=== PATIENT | female | born 1960 | race Caucasian/White ===

== ENCOUNTER 2016-04-25 19:16 | Emergency (ER) | payer OTHER ==
[~2016-04-25] VITALS: Ht 157.5 cm; Wt 67.0 kg
[~2016-04-25 19:16] MED LIST: ALBU18HF INHALATION; AZIT250T94 PO; BEN50 PO; DCL25TEC PO; PRED20TA PO; PRED50TA PO; TYLENOL
[2016-04-25 19:17] VITALS: Ht 157.5 cm; Wt 67.0 kg
[2016-04-25] MEDS ORDERED: LORA5TAB4 PO (19:35)
[2016-04-25] MEDS ORDERED: GUAI118L22 PO (19:35)
[2016-04-25] MEDS ORDERED: ALBU18HF INHALATION (19:35)
[2016-04-25] MEDS ORDERED: UDROBDM PO (19:38)
--- NOTE | 2016-04-25 23:20 | ERD ---
ER Documentation Chief Complaint Date/Time DATE: 04/25/16 TIME: 23:18 Chief Complaint cough x 5 days HPI 55 year old female comes in with a cough x 5 days. She has had rhinorrhea, cough , sore throat. No fever, chest pain or shortness of breath. ROS All systems reviewed and are negative except as per history of present illness. Medications Home Meds Active Scripts Guaifenesin-Dextromethorphan* (Robitussin* DM) 100MG/10MG/5ML Syrup, 5 ML PO Q4H Y for COUGH, #4 OZ Prov:YESY ZHANG PA-C 04/25/16 Loratadine* (Claritin*) 5 Mg Tab.rapdis, 5 MG PO DAILY, #30 TAB Prov:YESY ZHAGN PA-C 04/25/16 Albuterol Sulfate* (Ventolin HFA*) 18 Gm Hfa.aer.ad, 2 PUFF INHALATION Q4H, #1 INHALER Prov:YESY ZHANG PA-C 04/25/16 Albuterol Sulfate* (Ventolin HFA*) 18 Gm Hfa.aer.ad, 2 PUFF INHALATION Q4H, #1 INHALER Prov:FEMI MEJIA MD 05/22/15 Prednisone* (Prednisone*) 20 Mg Tab, 40 MG PO DAILY for 4 Days, TAB Prov:FEMI MEJIA MD 05/22/15 Azithromycin* (Zithromax*) 250 Mg Tablet, 250 MG PO .ZPACK DIRECTED, #6 TAB TAKE 500 MG (2 TABS) THE FIRST DAY THEN 250 MG (1 TAB) DAYS 2-5 Prov:FEMI MEJIA MD 05/22/15 Diphenhydramine Hcl* (Benadryl*) 50 Mg Cap, 50 MG PO Q6 Y for ITCHING, #30 CAP Prov:TATIANNA HAGEN NP 04/03/15 Prednisone* (Prednisone*) 50 Mg Tablet, 50 MG PO DAILY for 5 Days, TAB Prov:TATIANNA HAGEN NP 04/03/15 Reported Medications Diclofenac Sodium* (Diclofenac Sodium*) Unknown Strength Tablet.dr, PO TID, #90 TAB 04/03/15 [Tylenol] No Conflict Check 08/27/11 Allergies Allergies: Coded Allergies: ibuprofen (Verified Allergy, Mild, 2/16/16) PMhx/Soc History of Surgery: Yes (CHOLECYSTECTOMY) Anesthesia Reaction: No Hx Neurological Disorder: No Hx Respiratory Disorders: No Hx Cardiac Disorders: No Hx Psychiatric Problems: No Hx Miscellaneous Medical Probl: Yes (ARTHRITIS ) Hx Alcohol Use: No Hx Substance Use: No Hx Tobacco Use: No Physical Exam Vitals Vital Signs Date Time Temp Pulse Resp B/P Pulse Ox O2 Delivery O2 Flow Rate FiO2 04/25/16 19:17 97.2 74 20 163/79 98 Physical Exam General: Well-developed, well-nourished. The patient appears in no acute distress. HEENT: Head is normocephalic, atraumatic. No scleral icterus. Pupils are equal , round, and reactive. Oral mucous membranes are moist. No pharyngeal erythema. Neck: Supple. Nontender. Lungs: Clear to auscultation. Normal air movement. Heart: Regular rate and rhythm. S1 and S2 are normal. No murmurs, gallops, or rubs. Abdomen: Soft, nontender, nondistended. Bowel sounds are normoactive. Extremities: No clubbing or cyanosis. Normal pulses. Moving extremities x 4. No weakness. Neurologic: Alert and oriented 3. No focal deficits. Skin: Normal turgor. No rash or lesions. Procedures/MDM The patient is a 55 year old female who comes in with an acute upper respiratory infection, presumed viral. The patient has a differential diagnosis of a viral upper respiratory infection, bacterial upper respiratory infection, bronchitis, pneumonia, pharyngitis, laryngitis, epiglottitis, croup, pneumonia. Patient has a normal pulmonary examination, clear breath sounds, normal pulse oximetry, with no corrective measures needed at this time. Fluids, rest, antipyretics were encouraged. Departure Diagnosis: Primary Impression: URI (upper respiratory infection) Condition: Good Patient Instructions: Uri, Viral, No Abx (Adult) YESY ZHANG PA-C Apr 25, 2016 23:20
== END 2016-04-25 19:27 | disposition home or self-care (01) ==
LOC: E/R 19:16
DX: J06.9 Acute upper respiratory infection, unspecified (principal)
CPT/HCPCS: 99283

== ENCOUNTER 2016-12-02 22:43 | Observation (INO) | payer OTHER ==
[~2016-12-02] VITALS: Ht 157.5 cm; Wt 66.0 kg
[~2016-12-02 22:43] MED LIST changes: -DCL25TEC PO; +DICL25TA11 PO; +LORA5TAB4 PO; +UDROBDM PO
[2016-12-02 23:49] VITALS: Ht 157.5 cm; Wt 66.0 kg
[2016-12-03] MEDS ORDERED: SOD CHLORIDE 0.9% 500 ML IV STA (03:43)
[2016-12-03] MEDS ORDERED: morphine 4 MG/ML VIAL IV STA (03:43)
[2016-12-03] MEDS ORDERED: ONDANSETRON 4 MG INJ IV STA (03:43)
--- NOTE | 2016-12-03 04:32 | RADRPT ---
PROCEDURE: CT Brain without contrast. CLINICAL INDICATION: Headache TECHNIQUE: A CT of the brain was performed on a [employer] 64-slice CT scanner utilizing axial imaging from the skull base through the vertex without IV contrast. Multiplanar reformatted images were made. Images were reviewed on a PACS workstation. The CTDIvol is 60.41 mGy and the DLP is 84 5.69 mGycm. One or more of the following dose reduction techniques were used: automated exposure co ntrol, adjustment of the mA and/or kV according to patient size, or use of iterative reconstruction technique. COMPARISON: 04/17/2013 FINDINGS: There is no intracranial hemorrhage, mass effect, or midline shift. No extra-axial fluid collection is seen. The ventricles and sulci are normal in size and configuration. The density of the brain is normal, and the moreno white matter differentiation appears well-preserved. The brainstem and posteri or fossa are normal. The visualized paranasal sinuses and osseous structures are grossly unremarkabl e. IMPRESSION: 1. No evidence of acute intracranial pathology. RPTAT: HCNS Physician Pratibha Date Time Electronically viewed and signed by Physician Pratibha on 12/03/2016 04:31 /
--- NOTE | 2016-12-03 04:35 | RADRPT ---
PROCEDURE: CHEST - 1 VIEW CLINICAL INDICATION: 55-year-old female with chest pain and headaches. TECHNIQUE: A single frontal AP portable view of the chest was performed. The images were reviewed on a PACS workstation. COMPARISON: Chest x-ray November 17, 2013. FINDINGS: The cardiomediastinal silhouette has a normal appearance. There is no evidence for an infiltrate. There is no evidence for congestive heart failure. There is no evidence for pneumothorax. The osseou s structures are intact. IMPRESSION: No evidence for active cardiopulmonary disease. .Santiago Rice MD, MD Date Time Electronically viewed and signed by .Santiago Rice MD, on 12/03/2016 04:34 .Joelle/
[2016-12-03] MEDS ORDERED: HYD25 PO (05:30)
[2016-12-03] MEDS ORDERED: NAPR-688 PO (05:30)
[2016-12-03] MEDS ORDERED: OMEP20CA16 PO (05:30)
[2016-12-03 06:13] LABS: BASOPHILS % 0.4 % (0.0-2.0); EOSINOPHILS # 1.5 10^3/ul (0.0-0.5); EOSINOPHILS % 20.5 % (0.0-7.0); HEMATOCRIT 42.5 % (37.0-47.0); HEMOGLOBIN 14.1 g/dl (12.0-16.0); LYMPHOCYTES # 2.3 10^3/ul (0.8-2.9); LYMPHOCYTES % 31.4 % (15.0-51.0); MEAN CORPUSCULAR HEMOGLOBIN 28.1 pg (29.0-33.0); MEAN CORPUSCULAR HGB CONC 33.2 g/dl (32.0-37.0); MEAN CORPUSCULAR VOLUME 84.8 fl (82.0-101.0); MEAN PLATELET VOLUME 10.3 fl (7.4-10.4); MONOCYTE # 0.4 10^3/ul (0.3-0.9); MONOCYTES % 5.7 % (0.0-11.0); NEUTROPHILS % 41.7 % (39.0-77.0); PLATELET COUNT 243 10^3/UL (140-415); RED BLOOD COUNT 5.01 10^6/ul (4.20-5.40); RED CELL DISTRIBUTION WIDTH 13.2 % (11.5-14.5); WHITE BLOOD COUNT 7.4 10^3/ul (4.8-10.8)
[2016-12-03 06:34] LABS: INR 0.95; PROTIME 12.7 Sec (12.2-14.2)
[2016-12-03 06:35] LABS: PARTIAL THROMBOPLASTIN TIME 29.4 Sec (25.0-35.0)
[2016-12-03 06:56] LABS: ANION GAP 24 (8-16); BLOOD UREA NITROGEN 13 mg/dl (7-20); CALCIUM 9.9 mg/dl (8.4-10.2); CARBON DIOXIDE 27 mmol/L (21-31); CHLORIDE 99 mmol/L (97-110); GLUCOSE 107 mg/dl (70-220); POTASSIUM 3.8 mmol/L (3.5-5.1); SODIUM 146 mmol/L (135-144)
[2016-12-03] MEDS ORDERED: ASPIRIN 81 MG TAB PO ONE (07:00)
[2016-12-03 07:08] LABS: TROPONIN-I < 0.012 ng/ml (0.00-0.12)
--- NOTE | 2016-12-03 07:46 | ERA ---
ER Documentation Chief Complaint Date/Time DATE: 12/03/16 TIME: 07:45 Chief Complaint c/o dizziness, headache, left arm pain with nausea. HPI This is a 55-year-old female, Tajik-speaking, family interpreting who presents with multiple complaints. The main complaint is elevated blood pressure into the 180s and 190 systolic with associated mild, gradual onset frontal headache that is improved. The patient is also been describing chest pain over the last 1 week that is described as cramping in the center of her chest and usually worse when working out or exerting herself. She describes no chest pain currently. No fevers, chills, cough, pleuritic pain. ROS All systems reviewed and are negative except as per history of present illness. Medications Home Meds Reported Medications Omeprazole* (Omeprazole*) 20 Mg Capsule.dr, 20 MG PO DAILY, #30 CAP 12/03/16 Hydrochlorothiazide* (Hydrochlorothiazide*) 25 Mg Tab, 25 MG PO DAILY, #30 TAB 12/03/16 Naproxen* (Naproxen*) 500 Mg Tablet, 500 MG PO BID Y for PAIN LEVEL 6-10, TAB 12/03/16 Discontinued Reported Medications Diclofenac Sodium* (Diclofenac Sodium*) Unknown Strength Tablet., PO TID, #90 TAB 04/03/15 [Tylenol] No Conflict Check 08/27/11 Discontinued Scripts Guaifenesin-Dextromethorphan* (Robitussin* DM) 100MG/10MG/5ML Syrup, 5 ML PO Q4H Y for COUGH, #4 OZ Prov:YESY ZHANG PA-C 04/25/16 Loratadine* (Claritin*) 5 Mg Tab.rapdis, 5 MG PO DAILY, #30 TAB Prov:YESY ZHANG PA-C 04/25/16 Albuterol Sulfate* (Ventolin HFA*) 18 Gm Hfa.aer.ad, 2 PUFF INHALATION Q4H, #1 INHALER Prov:YESY ZHANG PA-C 04/25/16 Albuterol Sulfate* (Ventolin HFA*) 18 Gm Hfa.aer.ad, 2 PUFF INHALATION Q4H, #1 INHALER Prov:FEMI MEJIA MD 05/22/15 Prednisone* (Prednisone*) 20 Mg Tab, 40 MG PO DAILY for 4 Days, TAB Prov:FEMI MEJIA MD 05/22/15 Azithromycin* (Zithromax*) 250 Mg Tablet, 250 MG PO .ZPACK DIRECTED, #6 TAB TAKE 500 MG (2 TABS) THE FIRST DAY THEN 250 MG (1 TAB) DAYS 2-5 Prov:FEMI MEJIA MD 05/22/15 Diphenhydramine Hcl* (Benadryl*) 50 Mg Cap, 50 MG PO Q6 Y for ITCHING, #30 CAP Prov:TATIANNA HAGEN NP 04/03/15 Prednisone* (Prednisone*) 50 Mg Tablet, 50 MG PO DAILY for 5 Days, TAB Prov:TATIANNA HAGEN NP 04/03/15 Allergies Allergies: Coded Allergies: ibuprofen (Unverified Allergy, Mild, 12/03/16) PMhx/Soc History of Surgery: Yes (CHOLECYSTECTOMY) Anesthesia Reaction: No Hx Neurological Disorder: No Hx Respiratory Disorders: No Hx Cardiac Disorders: No Hx Psychiatric Problems: No Hx Miscellaneous Medical Probl: Yes (ARTHRITIS ) Hx Alcohol Use: No Hx Substance Use: No Hx Tobacco Use: No FmHx Family History: No diabetes Physical Exam Vitals Vital Signs Date Time Temp Pulse Resp B/P Pulse Ox O2 Delivery O2 Flow Rate FiO2 12/03/16 04:28 62 10 157/82 12/02/16 23:49 99.0 75 20 188/86 98 Physical Exam General: Well developed, well nourished, no acute distress Head: Normocephalic, atraumatic. Eyes: Pupils equally reactive, EOM intact ENT: Moist mucous membranes Neck: Supple, no lymphadenopathy Respiratory: Lungs clear bilaterally, no distress Cardiovascular: RRR, no murmurs, rubs, or gallops Abdominal: Soft, non-tender, non-distended, no peritoneal signs : Deferred MSK: No edema, no unilateral swelling, 5/5 strength Neurologic: Alert and oriented, moving all extremities, normal speech, no focal weakness, no cerebellar signs Skin: No rash Psych: Normal mood Result Diagram: 12/03/16 0508 12/03/16 0508 Results 24 hrs Laboratory Tests Test 12/03/16 05:08 White Blood Count 7.410^3/ul Red Blood Count 5.0110^6/ul Hemoglobin 14.1g/dl Hematocrit 42.5% Mean Corpuscular Volume 84.8fl Mean Corpuscular Hemoglobin 28.1pg Mean Corpuscular Hemoglobin Concent 33.2g/dl Red Cell Distribution Width 13.2% Platelet Count 24875^3/UL Mean Platelet Volume 10.3fl Neutrophils % 41.7% Lymphocytes % 31.4% Monocytes % 5.7% Eosinophils % 20.5% Basophils % 0.4% Nucleated Red Blood Cells % 0.0/100WBC Neutrophils # (Manual) 3.110^3/ul Lymphocytes # 2.310^3/ul Monocytes # 0.410^3/ul Eosinophils # 1.510^3/ul Basophils # 0.010^3/ul Nucleated Red Blood Cells # 0.010^3/ul Prothrombin Time 12.7Sec Prothrombin Time Ratio 1.0 INR International Normalized Ratio 0.95 Activated Partial Thromboplast Time 29.4Sec Sodium Level 146mmol/L Potassium Level 3.8mmol/L Chloride Level 99mmol/L Carbon Dioxide Level 27mmol/L Anion Gap 24 Blood Urea Nitrogen 13mg/dl Creatinine 0.70mg/dl Glucose Level 107mg/dl Calcium Level 9.9mg/dl Troponin I < 0.012ng/ml Current Medications Medications (Trade) Dose Ordered Sig/Patsy Route PRN Reason Start Time Stop Time Status Last Admin Dose Admin Sodium Chloride (NS) 500 ml @ 500 mls/hr Q1H STAT IV 12/03/16 03:43 12/03/16 04:42 DC 12/03/16 05:18 Ondansetron HCl (Zofran Inj) 4 mg ONCE STAT IV 12/03/16 03:43 12/03/16 03:46 DC 12/03/16 05:14 Morphine Sulfate (morphine) 4 mg ONCE STAT IV 12/03/16 03:43 12/03/16 03:46 DC 12/03/16 05:14 Aspirin (Aspirin) 324 mg ONCE ONCE PO 12/03/16 07:00 12/03/16 07:01 DC 12/03/16 07:27 Procedures/MDM EKG, MONITORS, & DIAGNOSTIC IMAGING: EKG: I reviewed and interpreted a 12-lead EKG. Rhythm: Normal sinus rhythm Ectopy: None Intervals: No abnormalities ST segments: No elevations or depressions T waves: No contiguous inversions Repeat EKG: EKG: I reviewed and interpreted a 12-lead EKG. Rhythm: Normal sinus rhythm Ectopy: None Intervals: No abnormalities ST segments: No elevations or depressions T waves: No contiguous inversions Chest x-ray: I reviewed and interpreted a 1 view of the chest Mediastinum: No enlargement Cardiac silhouette: No cardiomegaly Airspace: Clear lung virgen bilaterally without evidence of pneumothorax Bones: No evidence of fracture LAB INTERPRETATION: Negative troponin MEDICAL DECISION MAKING: The patient's history, physical exam and clinical presentation is concerning for possible cardiogenic etiology and acute coronary syndrome. Based on the patient's clinical exam and history and risk factors, I have a much lower clinical concern for pulmonary embolism, acute aortic dissection, pneumothorax, pneumonia, cardiac tamponade HEART Score: 4 MACE Rate: Up to 16.6% Shared Decision Making: We had a conversation regarding risk stratification, MACE rate, and the risks, benefits, alternatives of disposition planning options. Disposition planning: Patient agrees to my recommendation of inpatient hospitalization for risk stratification ER COURSE: The patient was given aspirin. Her blood pressure improved without significant intervention. The patient's symptoms are dramatically improved. She was given morphine and Zofran prior to my arrival. I kept the patient and/or family informed of laboratory and diagnostic imaging results throughout the emergency room course. DISPOSITION PLAN: Telemetry admission for rule out of acute coronary syndrome, risk stratification and consideration for provocative testing CONSULTATION: Accepting care team and consultations: I discussed the current laboratory data, diagnostic imaging and emergency care provided. Admitting team: Dr. Man AVALOS Admitting team indication: Insurance directed, REGAL Departure Diagnosis: Primary Impression: Hypertensive urgency Additional Impression: Chest pain Qualified Code: R07.9 - Chest pain, unspecified type Condition: Stable JANNA GIBBS MD Dec 03, 2016 07:46
[2016-12-03] MEDS ORDERED: ONDANSETRON 4 MG INJ IV PRN ×2 (08:00→09:00)
[2016-12-03] MEDS ORDERED: ACETAMINOPHEN 325 MG TAB PO PRN (08:00)
[2016-12-03] MEDS: SOD CHLORIDE 0.9% 1,000 ML IV SCH ×2 (08:40→21:01)
[2016-12-03] MEDS ORDERED: NITROGLYCERIN (SL) 0.4 MG TAB SL PRN (09:00)
[2016-12-03] MEDS ORDERED: LORAZEPAM 0.5 MG TAB PO PRN (09:00)
[2016-12-03] MEDS: ASPIRIN 81 MG TAB PO SCH (09:00)
[2016-12-03] MEDS ORDERED: MAGNESIUM HYDROXIDE 30ML CUP PO PRN (09:00)
[2016-12-03] MEDS ORDERED: morphine 2 MG INJ IV PRN (09:00)
[2016-12-03] MEDS ORDERED: BISACODYL 10 MG SUPP PR PRN (09:00)
[2016-12-03] MEDS ORDERED: HYDROCODONE/APAP (5/325) TAB PO PRN (09:00)
[2016-12-03] MEDS ORDERED: DOCUSATE SODIUM 100 MG CAP PO PRN (09:00)
[2016-12-03] MEDS ORDERED: NACL 0.9% 3 ML SYG IV SCH (09:00)
[2016-12-03] MEDS: FAMOTIDINE 20 MG TAB PO SCH ×2 (09:14→20:50)
[2016-12-03] MEDS: METOPROLOL 25 MG TAB PO SCH ×2 (09:50→21:00)
[2016-12-03 11:47] LABS: CHOL/HDL RATIO 4.6 RATIO; MAGNESIUM 2.1 mg/dl (1.7-2.5)
--- NOTE | 2016-12-03 13:16 | RADRPT ---
Echocardiogram Report Patient Name: TERI BABIN Gender: Female Date: 1960 Study Date: 03-Dec-2016 Administrative Officer: Avel [facility] Location: [facility] Ref. Physician: ADRYAN BRANNON Quality: Adequate Procedures: Transthoracic echocardiogram with complete 2D, M-Mode, and doppler examination. Indications: Chest Pain. 2D/M Mode Doppler Measurement Value Normal Ranges Measurement Value Normal Ranges LVIDd 2D 5.2 3.5 - 5.6 cm AV Peak Jona 1.6 m/sec LVIDs 2D 3.5 2.1 - 4.1 cm AV Peak PG 10.0 mmHg FS 2D 33.4 % LVOT Peak Jona 1.2 m/sec LVPWd 2D 1.0 0.6 - 1.1 cm LVOT Peak PG 5.0 mmHg IVSd 2D 1.0 0.6 - 1.1 cm MV E Peak Jona 0.9 m/sec IVS/LVPW 2D 1.0 MV A Peak Jona 0.8 m/sec AoR Diam 2D 2.3 2.0 - 3.7 cm MV E/A 1.1 LA/Ao 2D 1 0 - 1 MV Decel Time 190 msec EDV 2D 144.0 cm3 MV E/A 1.1 ESV 2D 42.5 cm3 TR Peak Jona 2.3 m/sec LA Dimen 2D 3.3 2.3 - 4.0 cm TR Peak PG 22.0 mmHg RVSP 25.0 mmHg Findings Left Ventricle: Normal left ventricular systolic function. Normal left ventricular cavity size. Normal left ventricular wall thickness. Ejection fraction is visually estimated at 60 %. Abnormal Diastolic Function. Right Ventricle: Normal right ventricular size. Normal right ventricular systolic function. Left Atrium: The left atrium is normal in size. Right Atrium: The right atrium is normal in size. Mitral Valve: Mild mitral leaflet calcification. Mild mitral annular calcification. Trace mitral regurgitation. Aortic Valve: Normal appearance of the aortic valve. No significant aortic stenosis or insufficiency. Tricuspid Valve: Normal appearance and function of the tricuspid valve with trace physiologic regurgitation. Estimated peak PA systolic pressure 25 mmHg. Pulmonic Valve: Pulmonic valve not well visualized. There is trace pulmonic regurgitation. Pericardium: Normal pericardium with no significant pericardial effusion. Aorta: Normal aortic root. IVC: Normal size and normal respiratory collapse consistent with normal right atrial pressure. Conclusions 1.Normal left ventricular systolic function. Normal left ventricular cavity size. Normal left ventricular wall thickness. Ejection fraction is visually estimated at 60 %. Abnormal Diastolic Function. 2.Normal right ventricular size. Normal right ventricular systolic function. 3.The left atrium is normal in size. 4.The right atrium is normal in size. 5.No significant valvular stenosis or regurgitation seen. 6.Normal pericardium with no significant pericardial effusion. Electronically Signed By: Chucho Soto 03-Dec-2016 13:16:28 -0700 Patient Name: TERI BABIN Study Date: 03-Dec-2016 [id number]
[2016-12-03 14:38] LABS: CREATINE KINASE 85 IU/L (23-200)
[2016-12-03 14:40] VITALS: TEMP 99
[2016-12-03 14:52] LABS: TROPONIN-I < 0.012 ng/ml (0.00-0.12)
--- NOTE | 2016-12-03 15:56 | HP ---
Date/Time of Note Date/Time of Note DATE: 12/03/16 TIME: 15:46 Assessment/Plan VTE Prophylaxis VTE Prophylaxis Intervention: LMWH Assessment/Plan Assessment/Plan 55-year-old female with: 1. Chest pain, cardiac enzymes negative 2, EKG with no acute findings, blood pressure control, cardiology evaluation for possible stress test. If no stress test planned patient will be discharged home later today. 2. Hypertension: Continue current medications. Prophylaxis: Lovenox for DVT prophylaxis, Pepcid for GI prophylaxis Disposition: Pending cardiology evaluation. HPI/ROS Admit Date/Time Admit Date/Time Hx of Present Illness Chief complaint: Chest pain History of presenting illness: This is a 55-year-old female with recently diagnosed hypertension, currently on hydrochlorothiazide, presented emergency department with complaint of left-sided chest pain. She reports sharp pain around the left breast area, no radiation, episode of nausea with the onset of the pain, no vomiting, no fevers, no cough, no chills. No similar previous episodes. He reports dizziness last night, CAT scan of the head negative She was hypertensive upon arrival in the ER but much improved now. Echocardiogram shows preserved EF and no wall motion abnormalities. Her deck enzymes negative 2, 8 hours apart. Cardiology evaluation pending for possible stress test, if no stress test patient will be discharged later today. ROS Constitutional: no complaints Eyes: no complaints ENT: no complaints Respiratory: no complaints Cardiovascular: chest pain (Sharp left-sided) Gastrointestinal: nausea Genitourinary: no complaints Musculoskeletal: no complaints Skin: no complaints Neurologic: dizziness Lymphatic: no complaints Psychological: no complaints Immunologic: no complaints PMH/Family/Social Past Medical History Medical History: hypertension Past Surgical History Status post cholecystectomy remotely Family History Significant Family History: no pertinent family hx Social History Alcohol Use: none Smoking Status: Never smoker Drug Use: none Exam/Review of Systems Vital Signs Vitals Vital Signs Date Time Temp Pulse Resp B/P Pulse Ox O2 Delivery O2 Flow Rate FiO2 12/03/16 14:40 99.0 63 10 122/74 98 Exam Constitutional: alert, oriented, well developed Respiratory: clear to auscultation, normal air movement Cardiovascular: nl pulses, regular rate and rhythm Gastrointestinal: non-tender, soft Musculoskeletal: nl extremities to inspection Extremities: normal pulses, other (No edema, clubbing or cyanosis) Neurological: ASSOCIATE ARTISTIC DIRECTOR II-XII intact, nl speech, nl strength Labs Result Diagram: 12/03/16 0508 12/03/16 0508 Medications Medications Current Medications Metoprolol Tartrate 25 mg 25 mg BID PO Last administered on 12/03/16 09:50; Admin Dose 25 MG; Start 12/03/16 at 09:00 Sodium Chloride (NS) 1,000 ml @ 80 mls/hr [id number] IV ; Start 12/03/16 at 08:40 Lorazepam (Ativan) 0.5 mg Q8H PRN PO ANXIETY; Start 12/03/16 at 09:00 Ondansetron HCl (Zofran Inj) 4 mg Q6H PRN IV NAUSEA AND/OR VOMITING; Start at 09:00 Aspirin (Aspirin) 81 mg DAILY PO ; Start 12/03/16 at 09:00 Nitroglycerin (Nitroglycerin (Sl Tab) 0.4 Mg) 1 tab Q5M PRN SL CHEST PAIN; Start 12/03/16 at 09:00 Acetaminophen (Tylenol Tab) 650 mg Q6H PRN PO PAIN LEVEL 1-3 OR FEVER; Start at 09:00 Acetaminophen/ Hydrocodone Bitart (Harmon (5/325)) 1 tab Q6H PRN PO PAIN LEVEL 4 -6; Start 12/03/16 at 09:00 Morphine Sulfate (morphine) 2 mg Q4H PRN IV PAIN LEVEL 7-10 Last administered on 12/03/16 14:15; Admin Dose 2 MG; Start 12/03/16 at 09:00 Docusate Sodium (Colace) 100 mg Q12H PRN PO CONSTIPATION; Start 12/03/16 at 09: 00 Magnesium Hydroxide (Milk Of Mag) 30 ml DAILY PRN PO CONSTIPATION; Start at 09:00 Bisacodyl (Dulcolax Supp) 10 mg DAILY PRN [place] CONSTIPATION; Start 12/03/16 at 09 :00 Famotidine (Pepcid) 20 mg Q12 PO Last administered on 12/03/16 09:14; Admin Dose 20 MG; Start 12/03/16 at 09:00 Procedures Procedures PROCEDURE: CHEST - 1 VIEW CLINICAL INDICATION: 55-year-old female with chest pain and headaches. TECHNIQUE: A single frontal AP portable view of the chest was performed. The images were reviewed on a PACS workstation. COMPARISON: Chest x-ray November 17, 2013. FINDINGS: The cardiomediastinal silhouette has a normal appearance. There is no evidence for an infiltrate. There is no evidence for congestive heart failure. There is no evidence for pneumothorax. The osseous structures are intact. IMPRESSION: No evidence for active cardiopulmonary disease. .Santiago Rice MD, Date Time Electronically viewed and signed by .Santiago Rice MD, MD on 12/03/2016 04:34 PROCEDURE: CT Brain without contrast. CLINICAL INDICATION: Headache TECHNIQUE: A CT of the brain was performed on a [employer] 64-slice CT scanner utilizing axial imaging from the skull base through the vertex without IV contrast. Multiplanar reformatted images were made. Images were reviewed on a PACS workstation. The CTDIvol is 60.41 mGy and the DLP is 845.69 mGycm. One or more of the following dose reduction techniques were used: automated exposure control, adjustment of the mA and/or kV according to patient size, or use of iterative reconstruction technique. COMPARISON: 04/17/2013 FINDINGS: There is no intracranial hemorrhage, mass effect, or midline shift. No extra- axial fluid collection is seen. The ventricles and sulci are normal in size and configuration. The density of the brain is normal, and the moreno white matter differentiation appears well-preserved. The brainstem and posterior fossa are normal. The visualized paranasal sinuses and osseous structures are grossly unremarkable. IMPRESSION: 1. No evidence of acute intracranial pathology. RPTAT: HCNS Physician Pratibha Date Time Electronically viewed and signed by Physician Pratibha on 12/03/2016 04: 31 STACY BRANNON Dec 03, 2016 15:56
[2016-12-03 16:53] VITALS: BP 134/74; PULSE 64; RESP 18
[2016-12-03 20:00] VITALS: BP 142/71; PULSE 53; RESP 18
[2016-12-03 20:01] VITALS: PULSE 50
[2016-12-04] VITALS (9 sets, daily range): BP systolic 122–152; BP diastolic 70–80; PULSE 53–64; RESP 14–19
[2016-12-04] MEDS: ACETAMINOPHEN 325 MG TAB PO PRN ×2 (08:34→15:07)
[2016-12-04] MEDS: METOPROLOL 25 MG TAB PO SCH (08:34)
[2016-12-04] MEDS: FAMOTIDINE 20 MG TAB PO SCH (08:34)
[2016-12-04] MEDS: ASPIRIN 81 MG TAB PO SCH (09:00)
[2016-12-04] MEDS: SOD CHLORIDE 0.9% 1,000 ML IV SCH ×2 (09:40→12:03)
[2016-12-04] MEDS ORDERED: REGADENOSON 0.4 MG/5 ML SYG ONE (11:17)
--- NOTE | 2016-12-04 13:10 | CONS ---
Date/Time of Note Date/Time of Note DATE: 12/04/16 TIME: 13:03 Assessment/Plan Assessment/Plan Additional Assessment/Plan Chest pain, shortness of breath and dizziness, resolved Hypertension, improved Preserved ejection fraction -Patient with chest pain, dizziness and shortness of breath initially which has since resolved. Denies exertional symptoms. Blood pressure has improved. Echocardiogram with preserved ejection fraction. Serial cardiac enzymes remain negative. Nuclear cardiac perfusion study on this morning. If results are negative and patient remains asymptomatic, no further inpatient cardiac workup needed at the current time. Consultation Date/Type/Reason Admit Date/Time Type of Consultation: cv Reason for Consultation Chest pain Hx of Present Illness This is a 55-year-old female with past medical history of hypertension who presents with symptoms of headache, dizziness and chest pain. Denies symptoms with exertion or with activity. Since blood pressure has improved, headache, dizziness and chest pain have resolved. He denies exertional chest pain or shortness of breath. Currently feeling better with no above complaints of the current time. Eyes: no complaints ENT: no complaints Respiratory: no complaints Cardiovascular: chest pain (Sharp left-sided) Gastrointestinal: nausea Genitourinary: no complaints Musculoskeletal: no complaints Skin: no complaints Neurologic: dizziness Lymphatic: no complaints Psychological: no complaints Immunologic: no complaints Past Medical History Medical History: hypertension Family History Significant Family History: no pertinent family hx Social History Alcohol Use: none Smoking Status: Never smoker Drug Use: none Exam/Review of Systems Vital Signs Vitals Vital Signs Date Time Temp Pulse Resp B/P Pulse Ox O2 Delivery O2 Flow Rate FiO2 12/04/16 12:00 53 12/04/16 07:30 97.7 14 152/77 97 Room Air Intake and Output 12/03/16 12/03/16 12/04/16 15:00 23:00 07:00 Intake Total 640 ml Balance 640 ml Exam No apparent distress Constitutional: alert, oriented Head: normocephalic Respiratory: other (Coarse breath sounds bilaterally, no wheezing) Cardiovascular: other (S1-S2 heard), regular rate and rhythm Gastrointestinal: bowel sounds, non-tender, soft Extremities: other (No edema) Results Result Diagram: 12/03/16 0508 12/03/16 0508 Results 24 hrs Laboratory Tests Test 12/03/16 13:50 Creatine Kinase 85 Creatine Kinase Index 0.8 Creatinine Kinase MB (Mass) 0.70 Troponin I < 0.012 Medications Medications Current Medications Metoprolol Tartrate 25 mg 25 mg BID PO Last administered on 12/04/16 08:34; Admin Dose 25 MG; Start 12/03/16 at 09:00 Sodium Chloride (NS) 1,000 ml @ 80 mls/hr [id number] IV Last administered on 12/04 12:03; Admin Dose 80 MLS/HR; Start 12/03/16 at 08:40 Lorazepam (Ativan) 0.5 mg Q8H PRN PO ANXIETY; Start 12/03/16 at 09:00 Ondansetron HCl (Zofran Inj) 4 mg Q6H PRN IV NAUSEA AND/OR VOMITING; Start at 09:00 Aspirin (Aspirin) 81 mg DAILY PO ; Start 12/03/16 at 09:00 Nitroglycerin (Nitroglycerin (Sl Tab) 0.4 Mg) 1 tab Q5M PRN SL CHEST PAIN; Start 12/03/16 at 09:00 Acetaminophen (Tylenol Tab) 650 mg Q6H PRN PO PAIN LEVEL 1-3 OR FEVER Last administered on 12/04/16 08:34; Admin Dose 650 MG; Start 12/03/16 at 09:00 Acetaminophen/ Hydrocodone Bitart ([place] (5/325)) 1 tab Q6H PRN PO PAIN LEVEL 4 -6; Start 12/03/16 at 09:00 Morphine Sulfate (morphine) 2 mg Q4H PRN IV PAIN LEVEL 7-10 Last administered on 12/03/16 14:15; Admin Dose 2 MG; Start 12/03/16 at 09:00 Docusate Sodium (Colace) 100 mg Q12H PRN PO CONSTIPATION; Start 12/03/16 at 09: 00 Magnesium Hydroxide (Milk Of Mag) 30 ml DAILY PRN PO CONSTIPATION; Start at 09:00 Bisacodyl (Dulcolax Supp) 10 mg DAILY PRN [place] CONSTIPATION; Start 12/03/16 at 09 :00 Famotidine (Pepcid) 20 mg Q12 PO Last administered on 12/04/16 08:34; Admin Dose 20 MG; Start 12/03/16 at 09:00 Procedures Procedures ECG done today was sinus rhythm, normal QRS duration, no significant ischemic ST abnormalities Chucho Soto DO Dec 04, 2016 13:10
--- NOTE | 2016-12-04 13:42 | PN ---
Date/Time of Note Date/Time of Note DATE: 12/04/16 TIME: 13:36 Assessment/Plan VTE Prophylaxis VTE Prophylaxis Intervention: SCD's Lines/Catheters IV Catheter Type (from Nrsg): Peripheral IV Assessment/Plan Assessment/Plan 55-year-old female with: 1. Chest pain, cardiac enzymes negative 2, EKG with no acute findings, blood pressure control, Appreciate cardiology evaluation Stress done this morning and negative, d/c home and follow up with PCP within 1 week 2. Hypertension: Change to losartan floor blood pressure control, avoid hydrochlorothiazide patient was slightly dehydrated on admission and blood pressure was still uncontrolled. Holding of beta blockers due to episodes of bradycardia. Prophylaxis: Lovenox for DVT prophylaxis, Pepcid for GI prophylaxis Disposition: Discharge home Subjective 24 Hr Interval Summary Free Text/Dictation Patient denies any chest pressure, she complained of headache this morning which is now resolved. Exam/Review of Systems Vital Signs Vitals Vital Signs Date Time Temp Pulse Resp B/P Pulse Ox O2 Delivery O2 Flow Rate FiO2 12/04/16 12:00 53 12/04/16 07:30 97.7 14 152/77 97 Room Air Intake and Output 12/03/16 12/03/16 12/04/16 15:00 23:00 07:00 Intake Total 640 ml Balance 640 ml Exam Constitutional: alert, oriented, well developed Respiratory: clear to auscultation, normal air movement Cardiovascular: nl pulses, regular rate and rhythm Gastrointestinal: non-tender, soft Musculoskeletal: nl extremities to inspection, nl gait and stance Extremities: normal pulses Neurological: ONCOLOGY SPECIALIST II-XII intact, nl mental status, nl speech, nl strength Results Result Diagram: 12/03/16 0508 12/03/16 0508 Results 24 hrs Laboratory Tests Test 12/03/16 13:50 Creatine Kinase 85 Creatine Kinase Index 0.8 Creatinine Kinase MB (Mass) 0.70 Troponin I < 0.012 Medications Medications Current Medications Metoprolol Tartrate 25 mg 25 mg BID PO Last administered on 12/04/16 08:34; Admin Dose 25 MG; Start 12/03/16 at 09:00 Sodium Chloride (NS) 1,000 ml @ 80 mls/hr [id number] IV Last administered on 12/04 12:03; Admin Dose 80 MLS/HR; Start 12/03/16 at 08:40 Lorazepam (Ativan) 0.5 mg Q8H PRN PO ANXIETY; Start 12/03/16 at 09:00 Ondansetron HCl (Zofran Inj) 4 mg Q6H PRN IV NAUSEA AND/OR VOMITING; Start at 09:00 Aspirin (Aspirin) 81 mg DAILY PO ; Start 12/03/16 at 09:00 Nitroglycerin (Nitroglycerin (Sl Tab) 0.4 Mg) 1 tab Q5M PRN SL CHEST PAIN; Start 12/03/16 at 09:00 Acetaminophen (Tylenol Tab) 650 mg Q6H PRN PO PAIN LEVEL 1-3 OR FEVER Last administered on 12/04/16 08:34; Admin Dose 650 MG; Start 12/03/16 at 09:00 Acetaminophen/ Hydrocodone Bitart ([place] (5/325)) 1 tab Q6H PRN PO PAIN LEVEL 4 -6; Start 12/03/16 at 09:00 Morphine Sulfate (morphine) 2 mg Q4H PRN IV PAIN LEVEL 7-10 Last administered on 12/03/16 14:15; Admin Dose 2 MG; Start 12/03/16 at 09:00 Docusate Sodium (Colace) 100 mg Q12H PRN PO CONSTIPATION; Start 12/03/16 at 09: 00 Magnesium Hydroxide (Milk Of Mag) 30 ml DAILY PRN PO CONSTIPATION; Start at 09:00 Bisacodyl (Dulcolax Supp) 10 mg DAILY PRN [place] CONSTIPATION; Start 12/03/16 at 09 :00 Famotidine (Pepcid) 20 mg Q12 PO Last administered on 12/04/16 08:34; Admin Dose 20 MG; Start 12/03/16 at 09:00 STACY BRANNON Dec 04, 2016 13:42
--- NOTE | 2016-12-04 14:08 | RADRPT ---
PROCEDURE: Lexiscan myocardial perfusion study CLINICAL INDICATION: 55 -year-old patient complaining of chest pain. TECHNIQUE: Lexiscan 0.4 mg intravenously separate acquisition gated myocardial perfusion SPECT usi ng Tc 99m Myoview 30.0 mCi intravenously at stress and Tc-99m Myoview, 10.2 mCi intravenously at res t was performed using the rest/stress sequence. Poststress Myoview SPECT images were obtained in th e supine position. COMPARISON: No prior studies. FINDINGS: Perfusion images reveal no evidence of perfusion defects. Lexiscan post stress gated SPECT images demonstrate no wall motion abnormalities. IMPRESSION: 1. Normal study with no evidence of perfusion defects or wall motion abnormalities. 2. The left ventricle ejection fraction at stress is 59%. A call report was made to Dr. Soto at 02:05 p.m. on December 04, 2016. RPTAT: HH .Amie Mata MD, Date Time Electronically viewed and signed by .Amie Mata MD, MD on 12/04/2016 14:07 .L/
--- NOTE | 2016-12-04 14:55 | EN ---
Date/Time of Note Date/Time of Note DATE: 12/04/16 TIME: 14:52 Event Note Cardiology Cardiology Event Note Lexiscan nuclear cardiac perfusion study Date of procedure 12/04/2016 This is a 55-year-old female with symptoms of chest pain and risk factors Baseline ECG sinus bradycardia with nonspecific T-wave abnormalities Baseline heart rate 50, baseline blood pressure 162/82 Peak blood pressure 162/82 After Lexiscan administration, T-wave inversions were seen Patient asymptomatic ECG interpretation is nonischemic The nuclear portion will be interpreted by our radiology colleagues. Chucho Soto DO Dec 04, 2016 14:55
--- NOTE | 2016-12-04 15:08 | PDOCDIS ---
Discharge Instructions CONDITION Patient Condition: Stable HOME CARE INSTRUCTIONS: Diet Instructions: 2gm Na ACTIVITY: Activity Restrictions: No Restrictions FOLLOW UP/APPOINTMENTS Follow-up Plan Follow-up with primary care physician in 1 week STACY BRANNON Dec 04, 2016 15:08
[2016-12-04] MEDS ORDERED: LOSA25TA2 PO (15:10)
[2016-12-04] MEDS ORDERED: LOSARTAN 25 MG TAB PO SCH (21:00)
== END 2016-12-04 18:22 | disposition home or self-care (01) ==
LOC: E/R 22:43 → INTOOBSV 12-03 07:48 → MS3 12-03 07:48
PROVIDERS: ADMIT Internal Medicine; ATTEND Internal Medicine
DX: R07.9 Chest pain, unspecified (principal); I10 Essential (primary) hypertension; Z90.49 Acquired absence of other specified parts of digestive tract; M19.90 Unspecified osteoarthritis, unspecified site; R51 Headache
CPT/HCPCS: 36415; 70450; 71010; 78452; 80048; 80061; 82550; 82553; 83735; 84443; 84484; 85025; 85610; 85730; 93005; 93017; 93306; 96374; 96375; 96376; A9500; A9505; J2270; J2405; J2785; J7030; J7040; Z7500; Z7502; Z7610; G0378